=== PATIENT | female | born 1955 | race Caucasian/White ===

== ENCOUNTER 2024-08-17 11:21 | Outpatient (CLI) | payer MEDICARE, SELFPAY ==
--- NOTE | 2024-08-17 11:31 | XR_ITS ---
FINAL REPORT CLINICAL HISTORY: Assessment of fecal burden bloating COMPARISON: None FINDINGS: SINGLE VIEW ABDOMEN A single view of the abdomen was obtained. There is a nonobstructive bowel gas pattern. There are no abnormally dilated loops of small bowel. There is a moderate stool burden present. No abnormal calcifications are identified. IMPRESSION: Nonobstructive bowel gas pattern with a moderate stool burden. Reviewed, Interpreted and Dictated by Luke Mccarty MD Transcribed by Bhavna Rutherford Authenticated and [facility]
== END 2024-08-17 23:59 | disposition home or self-care (01) ==
LOC: RAD 11:25
PROVIDERS: Visit Provider Internal Medicine Gastroenterology
DX: K59.00 Constipation, unspecified (principal); R14.0 Abdominal distension (gaseous)
CPT/HCPCS: 74018

== ENCOUNTER 2024-08-22 10:00 | Outpatient (CLI) | payer MEDICARE, SELFPAY ==
[2024-08-24 21:17] LABS: Pancreatic Elastase, Fecal >800 (>200)
== END 2024-08-22 23:59 | disposition home or self-care (01) ==
LOC: LAB 10:01
PROVIDERS: Visit Provider Internal Medicine Gastroenterology
DX: R14.0 Abdominal distension (gaseous) (principal)
CPT/HCPCS: 82656

== ENCOUNTER 2024-09-21 10:56 | Day surgery (SDC) | payer MEDICARE, SELFPAY ==
[2024-09-20 10:04] VITALS: BMI 26.2
[2024-09-21] MEDS: LACTATED RINGERS 1000ML 1,000 ML 25 ML IV (11:51)
[2024-09-21 11:53] VITALS: BP 120/87; PULSE 77; RESP 18; TEMP 36.7; O2SAT 100
--- NOTE | 2024-09-21 12:31 | P.PNANES_ITS ---
[facility] Disclaimer: The information contained in this section may have been updated after the patient was seen, as this information can be updated by other users. Medical History Stomach ulcer Hemorrhoids Diverticulosis Colon polyps Chronic gastritis Atrial fibrillation Surgical History H/O breast surgery H/O tubal ligation History of repair of rotator cuff H/O sinus surgery Family History Mother Colon cancer Other Stroke Social History Smoking Status: Never smoker alcohol intake: never substance use type: denies use current occupational status: retired Travel in the last 8 weeks: None caffeine: No [facility] Anesthesia Checklist Patient Identification Patient Identification: Arm Band Structural Data Admitted From: Home Planned Operative Procedure/s: EGD/Colonoscopy Consent for Planned Operative Procedure(s) Verified: Yes Verified Documents: Surgical Consent and History and Physical NPO Status Verified Time NPO: 00:00 Additional verifications Anesthesia Reactions: No Airway Assessment Mallampati Score:: Class II C-Spine Mobility Assessed: Yes TMJ Mobility Assessed: Yes Dentition: Good Dentition Neurological Assessment Level of Consciousness: Awake, Alert and Appropriate Anesthesia Plan Anesthesia Risk discussed: Yes Anesthesia Plan: Verified ASA Class: III Anesthesia Type: MAC
[2024-09-21 12:50] VITALS: O2SAT 100
--- NOTE | 2024-09-21 12:57 | EXP.HP ---
History of Present Illness *Admission Date: 09/21/24 *Reason for visit:: Iron deficiency *History of present illness: Mrs. Jacobsen is a 69-year-old female who is here for iron deficiency and bloating. The examination is deemed medically necessary for diagnostic panendoscopy. The patient has been seen, interviewed and examined prior to the procedure by both myself and the anesthesia provider. [facility] Disclaimer: The information contained in this section may have been updated after the patient was seen, as this information can be updated by other users. Medical History Stomach ulcer Hemorrhoids Diverticulosis Colon polyps Chronic gastritis Atrial fibrillation Surgical History H/O breast surgery H/O tubal ligation History of repair of rotator cuff H/O sinus surgery Family History Mother Colon cancer Other Stroke Social History (Updated 09/21/24 @ 12:32 by Subhash Johns CRNA) Smoking Status: Never smoker alcohol intake: never substance use type: denies use current occupational status: retired Travel in the last 8 weeks: None caffeine: No Other Medical History Have you received the Pneumonia Vaccine: No Review of Systems Review of Systems Review of systems (narrative): Negative *Cardiovascular Comments: Negative *Gastrointestinal Comments: Negative *Genitourinary Comments: Negative *Musculoskeletal Comments: Negative *Neurologic Comments: Negative Meds Home Medications and Allergies Home Medications ?Medication ?Instructions ?Recorded ?Confirmed ?Type aspirin 81 mg tablet,delayed 81 mg PO DAILY 08/11/24 09/21/24 History release (Adult Low Dose Aspirin) metoprolol succinate 25 mg 25 mg PO BID 08/11/24 09/21/24 History tablet,extended release 24 hr New Prescriptions to Start Prescriptions: Allergies Allergy/AdvReac Type Severity Reaction Status Date / Time cefaclor (From [facility]) Allergy Anaphylaxis Verified 09/21/24 11:51 prednisone Allergy Anaphylaxis Verified 09/21/24 11:51 garlic Allergy Rash, Uncoded 09/20/24 09:34 swelling Exam Data for Last 24 hours Vital signs and Labs for Last 24 Hours: Temp Pulse Resp BP Pulse Ox O2 Del Method 98.0 F 77 18 120/87 100 Room Air 09/21/24 11:53 09/21/24 11:53 09/21/24 11:53 09/21/24 11:53 09/21/24 11:53 09/21/24 11:53 I & O for Last 24 hours: Intake & Output 09/18/24 09/19/24 09/20/24 09/21/24 23:59 23:59 23:59 23:59 Weight 153 lb *Routine HEENT Exam Head: Present normocephalic Eye: Present EOMI and PERRL ENT: Present mucous membranes moist *Routine Neck Exam Neck: Present supple *Routine Respiratory Exam Respiratory: Present CTA bilaterally *Routine Cardiovascular Exam Cardiovascular: Present RRR *Routine Abdominal Exam Abdominal: Present soft and normoactive bowel sounds; Absent tenderness *Routine Rectal Exam Rectal:: deferred *Routine Genitalia Exam Genitalia:: deferred *Routine Extremities Exam Extremities: Absent cyanosis, clubbing or edema *Routine Skin Exam Skin: Present warm; Absent rash *Routine Neurological Exam Neurological: Present alert and oriented X3 Assessment and Plan *Assessment and plan (1) Iron deficiency: Status: Acute Category: Medical Code(s): E61.1 - Iron deficiency (2) Bloating: Status: Acute Category: Medical Code(s): R14.0 - Abdominal distension (gaseous) (3) Personal history of adenomatous and serrated colon polyps: Status: Acute Category: Medical Code(s): Z86.0101 - Personal history of adenomatous and serrated colon polyps (4) Family history of colon cancer in mother: Status: Acute Category: Medical Code(s): Z80.0 - Family history of malignant neoplasm of digestive organs Plan A/P: 1. Iron deficiency/bloating is the preprocedural diagnosis. The patient will be anesthetized/sedated using MAC sedation. The patient has been seen and examined. Cardiac and lung assessment prior to the examination is stable. Proceed with planned panendoscopy
--- NOTE | 2024-09-21 12:58 | HMH.PROCNOTE ---
[facility] Procedure Note Date: 09/21/24 Time: 13:06 Procedure Note:: Upper Endoscopy Procedure Report: Esophagogastroduodenoscopy with cold biopsies Endoscopost: Tj Liao II, MD Referring Physician: JOCE Oates[address] [facility], [id number] Date of Procedure: September 21, 2024 Equipment: Olympus GIF 190 standard upper endoscope Sedation: MAC sedation Indications: Mrs. Jacobsen is a 69-year-old female who is here for diagnostic upper endoscopy and colonoscopy. She does have a history of dyspepsia. She also has a history of an upper GI bleed while on anticoagulation and required 1 unit of PRBCs. She had paroxysmal atrial fibrillation and underwent a Watchman procedure. She was able to come off of blood thinners/Plavix (and had formerly been on Eliquis and Xarelto). She has had no further bleeding. However, she has had some iron deficiency and was placed on iron replacement. The patient reports moderate bloating. She is on a fiber bowel regimen and her x-ray had shown no obstipation or fecal burden. She did have enzyme testing for EPI (exocrine pancreatic insufficiency) and CSID which were normal. She formally had H. pylori that was treated to completion with Pylera and her subsequent H. pylori breath testing was negative. Procedure: Prior to the procedure, a history and physical exam was performed, and patient's medications and allergies were reviewed. The risks, benefits and alternatives of the sedation and procedure were discussed with the patient. All questions were answered and informed consent was obtained. The patient was brought to the procedure room. Patient identification and proposed procedure were verified by the physician and the nurse. The patient was placed in a left lateral decubitus position and the scope was passed under direct vision. Throughout the procedure, the patient's blood pressure, pulse, and oxygen saturations were monitored continuously. The upper GI endoscopy was accomplished without difficulty. The patient tolerated the procedure well. Findings: The scope was passed directly into the upper esophagus and advanced to the third portion of the duodenum. The post bulbar duodenum and duodenal bulb were normal with normal mucosa and conniventes. There was mild nodular duodenitis of the duodenal bulb. The scope was withdrawn through a normal pylorus into the stomach. There was a single superficial ulcer in the prepyloric antrum with a few linear erosions/erythema of the antrum with bile reflux. The body and fundus of the stomach were normal. Upon retroflexion there was no hiatal hernia. Biopsies were taken from the antrum and lesser curvature to rule out H. pylori. The scope was then withdrawn into the esophagus. There was a single linear erosion distally consistent with grade A reflux esophagitis. There were no rings, strictures or Ortega's. The remainder of the esophageal mucosa was normal. Impression: 1. Grade A reflux esophagitis (very mild) 2. Superficial antral ulcer with some bile reflux and linear erosive reactive gastropathy and mild peptic duodenitis Plan: I will follow-up the biopsies to rule out H. pylori. I will inquire about NSAID use. I will begin PPI therapy. I will proceed with colonoscopy. We will discuss additional treatment options for her bloating including low FODMAP and [id number] digestive enzyme.
--- NOTE | 2024-09-21 13:10 | HMH.PROCNOTE ---
[facility] Procedure Note Date: 09/21/24 Time: 13:22 Procedure Note:: Colonoscopy Procedure Report: Colonoscopy with cold snare polypectomy Endoscopist: Tj Liao II, MD Referring physician: MERE Oates [address] [place] [address] [address], [place] [address] Date of Procedure: September 21, 2024 Equipment: Olympus 190 variable stiffness pediatric colonoscope Sedation: MAC sedation Indication: Mrs. Jacobsen is a 69-year-old female who is here for diagnostic colonoscopy secondary to iron deficiency and bloating. The patient is now off of anticoagulation after having the Watchman procedure for her atrial fibrillation. She reports no melena, rectal bleeding or hematochezia. The patient is iron deficiency resolved. The patient does report moderate bloating. She does have some obstipation and is on the fiber bowel regimen (MiraLAX plus fiber). Her x-ray showed no obstipation or fecal burden. The patient formerly had H. pylori that was treated successfully with Pylera. The patient does have a family history of colon cancer (mother). The patient's last colonoscopy in July 2019 revealed 3 polyps (small tubular adenomas x 3). She does have a history of C. difficile colitis 5 years ago. Presently, she reports no abdominal pain or weight loss. Procedure: Prior to the procedure, a history and physical exam was performed, and patient's medications and allergies were reviewed. The risks, benefits and alternatives of the sedation and procedure were discussed with the patient. All questions were answered and informed consent was obtained. The patient was brought to the procedure room. Patient identification and proposed procedure were verified by the physician and the nurse. The patient was placed in a left lateral decubitus position and the scope was passed under direct vision. Throughout the procedure, the patient's blood pressure, pulse, and oxygen saturations were monitored continuously. The colonoscopy was accomplished without difficulty. The patient tolerated the procedure well. Findings: On digital rectal examination there was normal rectal tone. There were no external hemorrhoids. The colonoscope was introduced through the anal canal to the rectum and advanced to the cecum. The ileocecal valve and appendiceal orifice were identified. The scope was advanced a short distance into the ileum which appeared grossly normal. The scope was then withdrawn into the colon. There was a single 5 mm polyp in the ascending colon removed via cold snare polypectomy. The remaining cecum, ascending and transverse colon and mucosa were grossly normal. There were scattered diverticuli throughout the descending and sigmoid colon (LEFT colon). The rectum itself was normal. Upon retroflexion within the rectum there were no significant internal hemorrhoids. The preparation was excellent throughout with [place] Preparation Score of 9. The cecal time was 12 minutes. Impression: 1. Diminutive ascending colon polyp 2. Left-sided diverticulosis Plan: I will follow-up the polyp histology and recommend repeat surveillance colonoscopy again in 5 to 7 years. I would recommend continuing the fiber bowel regimen but would consider Motegrity because of her bloating. I would also consider referral to dietitian for low FODMAP diet.
[2024-09-21 13:26] VITALS: BP 103/56; PULSE 71; RESP 18; TEMP 36.2; O2SAT 100
[2024-09-21 13:36] VITALS: BP 100/58; PULSE 65; RESP 18; O2SAT 99
[2024-09-21 13:46] VITALS: BP 107/65; PULSE 72; RESP 18; O2SAT 98
[2024-09-21 13:56] VITALS: BP 100/58; PULSE 74; RESP 18; O2SAT 99
== END 2024-09-21 13:56 | disposition home or self-care (01) ==
PROVIDERS: Visit Provider Internal Medicine Gastroenterology
PROC: 0DJ08ZZ Inspection of Upper Intestinal Tract, Via Natural or Artificial Opening Endoscopic (ICD-10-PCS; CPT 43235; principal; 2024-09-21 13:00)
DX: E61.1 Iron deficiency (principal); R14.0 Abdominal distension (gaseous); Z86.0101 Personal history of adenomatous and serrated colon polyps; Z80.0 Family history of malignant neoplasm of digestive organs; K25.9 Gastric ulcer, unspecified as acute or chronic, without hemorrhage or perforation; K59.04 Chronic idiopathic constipation; R10.13 Epigastric pain; K21.00 Gastro-esophageal reflux disease with esophagitis, without bleeding; K31.9 Disease of stomach and duodenum, unspecified; K29.80 Duodenitis without bleeding; K63.5 Polyp of colon; K57.30 Diverticulosis of large intestine without perforation or abscess without bleeding
CPT/HCPCS: 43239; 45385; 88305; J2405; J7120